=== PATIENT | female | born 1995 | race Caucasian/White ===

== ENCOUNTER 2024-04-11 16:24 | Inpatient (IN) | payer OTHER, SELFPAY ==
[2024-04-11] VITALS (7 sets, daily range): BP systolic 115–119; BP diastolic 64–76; PULSE 81–109; RESP 16–18; TEMP 36.8–36.9; O2SAT 97; BMI 29.4
--- NOTE | 2024-04-11 18:17 | PM.OBHPAP1 ---
OB - H&P; HPI Antepartum History of Present Illness Time Seen by Provider: 18:00 Date Seen: 04/11/24 Chief complaint: induction Narrative: Terrie Marti is a 29 year old female at 40w3d by LMP c/w 7wk US here for elective induction. pt saw Dr Rodriguez in clinic today and was 1cm/60% and posterior. Since then, pt has noticed some tightening/mild contractions starting today. +FM. No abdominal pain. No concerns. Pt has been feeling well. no recent illness. Has cholestasis in first and induced at 36wks, no symptoms cholestasis this and reports uncomplicated . New FOC this . History of Present Dating criteria: based on LMP care: good care Ultrasounds: normal mid trimester US Medical complications: none Labs Blood type: AB (+) positive Rubella: immune RPR/VDLR: nonreactive GBS status: negative HBsAG: negative Meds Home Medications and Allergies Home Medications ?Medication ?Instructions ?Recorded ?Confirmed ?Type vit no.95-ferrous 1 tab PO DAILY 04/11/24 04/11/24 History fumarate 28 mg-folic acid 800 mcg tablet () Allergies Allergy/AdvReac Type Severity Reaction Status Date / Time sulfamethoxazole (From Allergy Mild rash Verified 04/11/24 16:41 Bactrim) trimethoprim (From Bactrim) Allergy Mild rash Verified 04/11/24 16:41 OB - H&P: Exam Physical Exam: Vital signs: Temp Pulse Resp BP Pulse Ox 98.2 F 109 H 17 116/76 97 04/11/24 16:36 04/11/24 16:36 04/11/24 16:36 04/11/24 16:36 04/11/24 16:34 Constitutional: Constitutional: no acute distress Routine HEENT Exam: Head: Present normal inspection Eye: Present normal appearance ENT: Present mucous membranes moist Routine Respiratory Exam: Respiratory: Present CTA bilaterally Routine Cardiovascular Exam: Cardiovascular: RRR Routine Exam: External: Present normal external exam Detailed Labor and Delivery Exam: Patient Gravid: Yes Dilation (cm): 2 Effacement (%): 60 Cervix position: posterior Consistency: soft Contraction frequency (min): 5 Fetus (Single): Station: -3 Amniotic Membrane Status: intact Heart Rate Baseline: 140 Monitor Accelerations: Present Monitor Decelerations: None 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 Discussed induction plan and variability of induction course. -Cook catheter placed without difficulty -plan low dose pitocin starting around midnight per protocol -known GBS negative Additional Plan Plan: induction
[2024-04-11 18:57] LABS: Amnisure Rom* POSITIVE
--- NOTE | 2024-04-11 19:06 | PM.OBPNL ---
Subjective Time Seen by Provider: 19:10 Date Seen: 04/11/24 Narrative: Pt reported gush of clear fluid around 1836. she has continue to have leaking fluid and amniosure is positive so cook catheter removed by RN. She did have some heart recurrent decelerations for about 10min after SROM but those have stopped and heart tones improved now. pt is feeling regular contractions. 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 suspect will transition into active labor, if not, will plan start pitocin in 4 hours. discussed with pt, and RN. Pt and her did not have any ?'s and were in agreement with plan. Dr Rodriguez updated
[2024-04-12] VITALS (20 sets, daily range): BP systolic 104–132; BP diastolic 58–83; PULSE 75–105; RESP 16–19; TEMP 36.6–37; O2SAT 96–99
--- NOTE | 2024-04-12 10:05 | W.PM.VAGDEL1 ---
Procedure Procedure Done: Global Intrapartal Events: Labor Induction (Cook catheter for approx 30 mins before SROM. No further induction or augmentation. ) Delivery monitor: external FHT Route of delivery: Laceration description: None Estimated blood loss (mL): 200 Anesthesia type: None Disposition: floor Narrative: Admitted for elective induction for term at 40 weeks, 3 days. Uncomplicated . 2 cm at admission with occasional contractions. Cook catheter placed with SROM occurring approximately 30 mins later at 1835 with clear fluid. Catheter removed with cervical change noted. No further augmentation was done. Active labor started approximately 2200 on 04/11 and she had slow and steady progression until she was found to be complete at 0838 on 04/12. She requested only intermittent monitoring done during labor. Risks of this were discussed. She began pushing when she was found to be complete and again made steady progress with delivery of a female via the OA position at 0848. Nuchal cord x2 was reduced prior to delivery of the body. Baby had initial poor tone and respiratory effort so she was brought to the warmer and given CPAP for less than 1 minute with almost immediate improvement in numbers. She looked well and was then brought to mom and began to nurse. No perineal or vaginal lacerations were noted. She delivered the placenta intact and spontaneously at 0925. She declined pitocin after delivery and only had 200 cc of blood loss estimated. Aspen Infant Gender: Female presentation: vertex Placental Delivery Description: Spontaneous Cord Description: 3 Vessels and Nuchal Cord (Around neck x2, reduced prior to delivery) OB Vag Delivery Procedures Additional Procedures ECV: No Cook Catheter Insertion: Yes NST: Yes D&C: No Laceration Repair: No Tubal Ligation : No
[2024-04-13] VITALS: BP 100/59; PULSE 81; RESP 16; TEMP 36.6; O2SAT 96
[2024-04-13 04:03] VITALS: BP 102/68; PULSE 75; RESP 14; O2SAT 95
[2024-04-13 06:58] LABS: Hemoglobin* 12.2 gm/dL (12.0-16.0)
--- NOTE | 2024-04-13 07:50 | P.DS_ITS ---
DS: Providers Provider Date Seen: 04/13/24 Date of admission: 04/11/24 16:24 Primary care physician: Tank Rodriguez MD Admitting Clinician: Shae Casey DO Attending Physician on discharge: Shae Casey DO DS: Diagnosis Discharge Diagnosis (1) Vaginal delivery: Status: Acute Exam Const: Vital Signs, click to edit/add: Vital Signs - 24 hr 04/12/24 08:14 04/12/24 09:33 04/12/24 09:48 Temperature 97.9 F Pulse Rate 85 82 Pulse Rate [Pulse Oximeter] Respiratory Rate 18 Blood Pressure 123/76 111/68 Blood Pressure [Le ft Arm] Pulse Oximetry Oxygen Delivery Me thod 04/12/24 10:03 04/12/24 10:18 04/12/24 10:33 Temperature Pulse Rate 99 75 95 Pulse Rate [Pulse Oximeter] Respiratory Rate Blood Pressure 116/68 112/70 109/68 Blood Pressure [Le ft Arm] Pulse Oximetry Oxygen Delivery Me thod 04/12/24 10:48 04/12/24 11:03 04/12/24 11:19 Temperature Pulse Rate 83 95 95 Pulse Rate [Pulse Oximeter] Respiratory Rate Blood Pressure 113/68 116/73 104/58 L Blood Pressure [Le ft Arm] Pulse Oximetry Oxygen Delivery Me thod 04/12/24 11:28 04/12/24 15:33 04/12/24 20:00 Temperature 98.2 F Pulse Rate 88 Pulse Rate [Pulse Oximeter] 105 H 100 Respiratory Rate 16 16 Blood Pressure 111/64 Blood Pressure [Le ft Arm] 121/83 109/75 Pulse Oximetry 99 96 Oxygen Delivery Me thod Room Air Room Air 04/13/24 00:00 04/13/24 04:03 Temperature 98 F Pulse Rate Pulse Rate [Pulse Oximeter] 81 75 Respiratory Rate 16 14 Blood Pressure Blood Pressure [Le ft Arm] 100/59 L 102/68 Pulse Oximetry 96 95 Oxygen Delivery Me thod Room Air Room Air Common normals: no apparent distress General appearance: cooperative and comfortable : Uterus: U/2 Lochia: scant Extremity: Common normals: no clubbing, cyanosis or edema Skin: Common normals: no rashes or lesions noted General skin exam: no rashes or lesions noted OB - DS: Summary Hospital Course Hospital Course: The patient is a 29 year old G 2 P 2 at 40.4 weeks gestation that was admitted to the Center on 04/11/24 for induction of labor. She had an uncomplicated vaginal delivery. She delivered a viable female . She is breast feeding. the patient has done well. Peripartum Data Infant delivery method: Vaginal Laceration description: None complications: none Gender: Female Infant Discharge Plan: Home Time Spent with Patient Time attestation: Total time spent providing and/or coordinating discharge services: Discharge Plan Discharge Disposition: Home, Self-Care Date of Admission: 04/11/24 16:24 Primary Care Provider: Tank Rodriguez Condition: Improved Anticipated Discharge Date/Time: 04/13/24 07:56 Discharge Medications: Continued PNV cmb#95-ferrous fumarate-FA [] 28 mg iron- 800 mcg tablet 1 tab PO DAILY Discharge Orders: Discharge Order (Routine); Ordered 04/13/24 Ordered By: Tank Rodriguez Patient Education: Vaginal Delivery (DC) Activity Level: No Restrictions Discharge Diet: Regular Follow Up Appointments: Tank Rodriguez MD [Primary Care Provider] - Forms: [employer] Info Instructions
[2024-04-13 09:30] VITALS: BP 105/68; PULSE 75; RESP 14; TEMP 36.6; O2SAT 95
[2024-04-14 22:41] LABS: Rapid Plasma Reagin (RPR) Non Reactive (Non Reactive)
== END 2024-04-13 10:30 | disposition home or self-care (01) | DRG 807 ==
PROVIDERS: Admitting Provider Family Medicine; PCP Surgery; Visit Provider Family Medicine
DX: O48.0 Post-term pregnancy (principal); O76 Abnormality in fetal heart rate and rhythm complicating labor and delivery; Z37.0 Single live birth; Z3A.40 40 weeks gestation of pregnancy
CPT/HCPCS: 36415; 59200; 84112; 85018; 85025; 86592; C1726